=== PATIENT | male | born 1960 | race African-American/Black ===

== ENCOUNTER 2016-08-22 21:43 | Emergency (ER) | payer OTHER ==
[~2016-08-22] VITALS: Ht 175.3 cm; Wt 73.0 kg
[2016-08-23] MEDS ORDERED: KETOROLAC 60MG/2ML VIAL IM ONE (02:00)
[2016-08-23 04:06] VITALS: BP 143/90
[2016-08-23] MEDS ORDERED: ACETAMINOPHEN WITH CODEINE 300/30MG TABLET PO ONE (04:30)
== END 2016-08-23 05:15 | disposition home or self-care (01) ==
LOC: ER 21:44
DX: M54.2 Cervicalgia (principal); G89.29 Other chronic pain; M54.9 Dorsalgia, unspecified; F17.200 Nicotine dependence, unspecified, uncomplicated
CPT/HCPCS: 96372; 99283; J1885